=== PATIENT | male | born 1980 | race Caucasian/White ===

== ENCOUNTER 2016-12-23 14:35 | Emergency (ER) | payer OTHER ==
[~2016-12-23 14:35] MED LIST: CEFDINIR300 MG PO; CELEXA40 MG PO; COMBIVENT IH; DESYREL50 MG PO; DUONEB 2.5-0.5MG3 ML INH; GABAPENTIN600 MG PO; NICODERM 21MG PA1 EA TD; TESSALON PERLE100 MG PO; ZANAFLEX4 MG PO; ZITHROMAX250 MG PO; [UNRECOGNIZED DRUG - OTHER] IH
== END 2016-12-23 17:18 | disposition left against medical advice (07) ==
LOC: ER 14:35
DX: Z53.21 Procedure and treatment not carried out due to patient leaving prior to being seen by health care provider (principal)
CPT/HCPCS: 99211